=== PATIENT | female | born 1955 | race Caucasian/White ===

== ENCOUNTER 2016-03-15 14:27 | Emergency (ER) | payer OTHER ==
--- NOTE | 2016-03-15 16:02 | UCPHY ---
H & P Time Seen by Provider: 03/15/16 15:55 Patient Type: Established HPI/ROS: CHIEF COMPLAINT: Ongoing cough, low-grade fever, HISTORY OF PRESENT ILLNESS: This is a 61-year-old female with history of asthma states she was at urgent care about a week ago with temperatures to 102 accompanied by nausea, vomiting, diarrhea. At that time she had a slight upper respiratory infection. Her vomiting and diarrhea have resolved as well as the nausea and headache, however, she now has significant respiratory complaints. Patient reports ongoing low-grade fever, frequent coughing, sputum production, shortness of breath. She uses Xopenex inhaler as well as Xopenex neb. She has been using these nearly round the clock. Patient cannot tolerate albuterol secondary to a arrhythmias. She denies any chest pain. No palpitations. Reports her appetite has been diminished but she has been tolerating fluids and pushing fluids. REVIEW OF SYSTEMS: Aside from elements discussed in the HPI, a comprehensive 10-point review of systems was reviewed and is negative. PAST MEDICAL HISTORY: Asthma, arrhythmia, hypertension. SOCIAL HISTORY: Currently smokes. VITAL SIGNS: see nurse's notes. GENERAL: Well-developed, well-nourished, sounds congested, frequent cough. HEENT: Normal, no discharge or icterus, moist mucous membranes. TMs are clear bilaterally. Neck: supple, FROM. LUNGS: Occasional soft wheeze, crackles at the left base. Good air movement. No rhonchi. No respiratory distress. CARDIAC: Regular rate and rhythm, no rubs, murmurs or gallops. ABDOMEN: Soft, nontender, nondistended, bowel sounds normal. BACK: No CVA tenderness. No vertebral tenderness. EXTREMITIES: No edema, FROM. NEURO: Alert and oriented, grossly nonfocal. SKIN: Warm and dry, no rash. Smoking Status: Current every day smoker Constitutional: Initial Vital Signs Temperature (C) 36.8 C 03/15/16 15:31 Heart Rate 74 03/15/16 15:31 Respiratory Rate 15 03/15/16 15:31 Blood Pressure 146/93 H 03/15/16 15:31 O2 Sat (%) 93 03/15/16 15:31 O2 Delivery Mode Room Air Allergies/Adverse Reactions: tetracycline HCl [From Achromycin] Allergy (Severe, Verified 12/15/15 08:57) ibuprofen [Ibuprofen] Allergy (Unknown, Verified 12/15/15 08:57) Hypotension Sulfa (Sulfonamide Antibiotics) Allergy (Unknown, Verified 12/15/15 08:57) tetracaine [Tetracaine] Allergy (Unknown, Verified 12/15/15 08:57) peanut Allergy (Verified 12/15/15 08:57) AUREOMYCIN Allergy (Unknown, Uncoded 12/15/15 08:57) CITRUS Allergy (Uncoded 12/15/15 08:57) EGGPLANT Allergy (Uncoded 12/15/15 08:57) Other-Enter Comments MSG Allergy (Uncoded 12/15/15 08:57) Other-Enter Comments Home Medications: Medication Instructions Recorded Lopressor 25 mg BID 12/14/08 Patenol Eye Drops For Allergies 02/26/09 Aleve 220 MG (OTC) 04/04/14 Lansoprazole [Prevacid] 30 04/04/14 Fluticasone Hfa 110 Mcg [Flovent 2 puffs IH BID #1 mdi 04/09/14 Hfa] Ipratropium [Atrovent Neb (*)] 0.5 mg IH Q4-6PRN PRN #25 deyvial 04/09/14 Levalbuterol 1.25 mg [Xopenex 1.25 mg IH Q4-6PRN PRN #25 deyvial 04/09/14 1.25MG Neb (RX)] Albuterol [Proventil Neb] 3 ml IH Q4 PRN #72 deyvial 12/15/15 predniSONE [Prednisone] 20 mg PO BID #12 tablet 12/15/15 Ondansetron Odt [Zofran Odt 4 mg 4 mg PO Q4 PRN #10 tab 03/09/16 (RX)] AZITHROMYCIN [Z-PACK] 250 - 500 mg PO DAILY #6 tab 03/15/16 predniSONE [prednisone 10mg (RX)] 40 mg PO DAILY 3 Days 03/15/16 Medical Decision Making ED Course/Re-evaluation: 61-year-old female, current smoker, history of asthma, uses Xopenex regularly, presenting with cough, diminished appetite, shortness breath, wheezes. Influenza was negative week ago. Remains negative today. Patient received a Xopenex neb in the urgent care as well as 60 mg of prednisone. She was discharged with azithromycin, and prednisone. She was encouraged to continue using her nebulizer frequently. Push fluids. Return if worse. Differential Diagnosis: Differential diagnosis for the patient's cough and symptom complex was considered including but not limited to viral versus bacterial bronchitis, asthma, pneumonia, bronchitis, bronchospasm, pulmonary emboli, upper respiratory infection. - Data Points Laboratory Results: 03/15/16 15:40 Influenza Typ A,B (DFA) NEGATIVE FOR FLU (NEGATIVE) Medications Given: Discontinued Medications Levalbuterol (Xopenex 0.63mg Neb) 0.63 mg IH EDNOW ONE Stop: 03/15/16 16:11 Last Admin: 03/15/16 16:29 Dose: 0.63 mg Prednisone (Prednisone) 60 mg PO EDNOW ONE Stop: 03/15/16 16:12 Last Admin: 03/15/16 16:29 Dose: 60 mg Departure - Departure Disposition: Home, Routine, Self-Care Clinical Impression: Bronchitis, Cough, Asthma exacerbation Condition: Good Instructions: Acute Bronchitis (ED), Bronchospasm (ED), Asthma (ED) Additional Instructions: Please push fluids. It is important that you stay well hydrated. Take azithromycin as directed. Take prednisone as directed. Use your Xopenex nebulization machine every 4-6 hours. Continue to use your Flovent as directed. Follow up with your primary care physician if you're not improving as expected. Return to Urgent Care few significantly worse with high fevers, severe shortness of breath, chest pain, vomiting, fainting, or other concerns. Referrals: Aretha Major MD [Primary Care Provider] - As per Instructions Prescriptions: AZITHROMYCIN [Z-PACK] 250 - 500 mg PO DAILY #6 tab predniSONE [prednisone 10mg (RX)] 40 mg PO DAILY 3 Days - PQRS PQRS Measurement: Not applicable
--- NOTE | 2016-03-15 16:03 | DX ---
PA and Lateral Chest March 15, 2016 1541 hours Clinical Indications: Cough for 3 weeks. Comparison: April 04, 2014. Findings: The lungs are clear, and no masses are found. The heart and pulmonary vessels are normal. There are no pleural effusions and no pneumothorax. The bones are unremarkable for this age. Minim al bronchial wall thickening seen on prior examination has improved overall. Impression: No acute cardiopulmonary process.
[2016-03-15] MEDS ORDERED: LEVALBUTEROL 0.63 MG/3 ML DEYVIAL IH ONE (16:10)
[2016-03-15] MEDS ORDERED: predniSONE 20 MG TAB PO ONE (16:11)
[2016-03-15 16:38] VITALS: BP 144/88; PULSE 76; RESP 16; TEMP 97.9; O2SAT 94
== END 2016-03-15 16:38 | disposition home or self-care (01) ==
LOC: CED 14:27
DX: J45.901 Unspecified asthma with (acute) exacerbation (principal)
CPT/HCPCS: 71020-PO; 87400-PO; 99214-PO; G0463-PO

== ENCOUNTER → 2016-08-12 | Outpatient (CLI) | payer OTHER | LOC: FIMAGING 14:29 | PROVIDERS: ATTEND Obstetrics & Gynecology | DX: Z12.31 Encounter for screening mammogram for malignant neoplasm of breast (principal) | CPT/HCPCS: G0202 ==

== ENCOUNTER → 2018-03-16 | Outpatient (CLI) | payer OTHER | LOC: FIMAGING 14:54 | PROVIDERS: ATTEND Internal Medicine | DX: Z12.31 Encounter for screening mammogram for malignant neoplasm of breast (principal) ==